=== PATIENT | female | born 1980 | race Two or more races ===

== ENCOUNTER 2021-06-10 10:23 | Emergency (ER) | payer OTHER ==
[~2021-06-10] VITALS: Ht 167.6 cm; Wt 72.6 kg
[2021-06-10] MEDS ORDERED: ACID REDUCER20 MG PO (10:50)
[2021-06-10] MEDS ORDERED: CEPHALEXIN500 M1 PO (10:51)
[2021-06-10] MEDS ORDERED: PYRIDIUM DS200 MG PO (16:12)
[2021-06-10] MEDS ORDERED: HEMATRON AF PO (16:12)
== END 2021-06-10 16:44 ==
LOC: ER 10:23
DX: N39.0 Urinary tract infection, site not specified (principal)

== ENCOUNTER 2021-06-15 10:18 | Emergency (ER) | payer OTHER ==
[~2021-06-15] VITALS: Ht 167.6 cm; Wt 72.6 kg
[~2021-06-15 10:18] MED LIST: ACID REDUCER20 MG PO; CEPHALEXIN500 M1 PO; HEMATRON AF PO; PYRIDIUM DS200 MG PO
== END 2021-06-15 15:27 | disposition home or self-care (01) ==
LOC: ER 10:18
DX: N39.0 Urinary tract infection, site not specified (principal)

== ENCOUNTER 2021-07-12 07:13 | Emergency (ER) | payer OTHER ==
[~2021-07-12] VITALS: Ht 167.6 cm; Wt 68.0 kg
[2021-07-12] MEDS ORDERED: KETO10TA2 PO (10:44)
== END 2021-07-12 10:48 | disposition home or self-care (01) ==
LOC: ER 07:13
DX: R30.0 Dysuria (principal); M54.50 Low back pain, unspecified

== ENCOUNTER → 2021-08-03 | Emergency (ER) | payer OTHER ==
[~2021-08-03] VITALS: Ht 167.6 cm; Wt 68.0 kg
[~2021-08-03] MED LIST changes: +KETO10TA2 PO
== END | disposition home or self-care (01) ==
LOC: ER 07:57
DX: K29.00 Acute gastritis without bleeding (principal)

== ENCOUNTER 2021-08-19 09:18 | Emergency (ER) | payer OTHER ==
[~2021-08-19] VITALS: Ht 167.6 cm; Wt 68.0 kg
== END 2021-08-19 12:04 | disposition home or self-care (01) ==
LOC: ER 09:18
DX: J06.9 Acute upper respiratory infection, unspecified (principal)

== ENCOUNTER 2021-09-02 09:52 | Emergency (ER) | payer OTHER ==
[~2021-09-02] VITALS: Ht 167.6 cm; Wt 68.0 kg
== END 2021-09-02 16:04 | disposition home or self-care (01) ==
LOC: ER 09:52
DX: N93.9 Abnormal uterine and vaginal bleeding, unspecified (principal)

== ENCOUNTER 2021-09-05 06:36 | Emergency (ER) | payer OTHER ==
[~2021-09-05] VITALS: Ht 167.6 cm; Wt 68.0 kg
[2021-09-11] MEDS ORDERED: PEPCID AC20 MG (00:46)
[2021-09-11] MEDS ORDERED: CARAFATE1 GM PO (02:56)
[2021-09-11] MEDS ORDERED: PEPCID AC20 MG PO (02:56)
[2021-09-12] MEDS ORDERED: PANADOL (21:54)
== END 2021-09-05 09:07 | disposition home or self-care (01) ==
LOC: ER 06:36
DX: R10.2 Pelvic and perineal pain (principal); R30.0 Dysuria

== ENCOUNTER → 2021-09-12 | Emergency (ER) | payer OTHER ==
[~2021-09-12] VITALS: Ht 167.6 cm; Wt 67.6 kg
[~2021-09-12] MED LIST changes: +CARAFATE1 GM PO; +PANADOL; +PEPCID AC20 MG; +PEPCID AC20 MG PO
== END | disposition left against medical advice (07) ==
LOC: ER 20:11
DX: Z53.21 Procedure and treatment not carried out due to patient leaving prior to being seen by health care provider (principal)

== ENCOUNTER 2021-12-22 01:21 | Emergency (ER) | payer OTHER ==
[~2021-12-22] VITALS: Ht 167.6 cm; Wt 68.0 kg
== END 2021-12-22 11:06 | disposition home or self-care (01) ==
LOC: ER 01:21
DX: J32.9 Chronic sinusitis, unspecified (principal); G51.0 Bell's palsy; D64.9 Anemia, unspecified

== ENCOUNTER 2022-01-17 20:29 | Emergency (ER) | payer OTHER ==
[~2022-01-17] VITALS: Ht 167.6 cm; Wt 68.0 kg
[2022-01-17] MEDS ORDERED: AMOX1TAB5 PO (21:16)
== END 2022-01-17 21:48 | disposition home or self-care (01) ==
LOC: ER 20:29
DX: J32.1 Chronic frontal sinusitis (principal); Z88.8 Allergy status to other drugs, medicaments and biological substances

== ENCOUNTER 2022-02-12 20:58 | Emergency (ER) | payer OTHER ==
[~2022-02-12] VITALS: Ht 167.6 cm; Wt 68.0 kg
[~2022-02-12 20:58] MED LIST changes: +AMOX1TAB5 PO
[2022-02-13] MEDS ORDERED: ULTRACET PO (00:45)
== END 2022-02-13 01:02 | disposition home or self-care (01) ==
LOC: ER 20:58
DX: G43.909 Migraine, unspecified, not intractable, without status migrainosus (principal); Z20.822 Contact with and (suspected) exposure to COVID-19

== ENCOUNTER 2022-03-18 04:04 | Emergency (ER) | payer OTHER ==
[~2022-03-18] VITALS: Ht 167.6 cm; Wt 68.0 kg
[~2022-03-18 04:04] MED LIST changes: +ULTRACET PO
== END 2022-03-18 09:29 | disposition home or self-care (01) ==
LOC: ER 04:04
DX: K29.70 Gastritis, unspecified, without bleeding (principal); F41.9 Anxiety disorder, unspecified; Z20.822 Contact with and (suspected) exposure to COVID-19; Z88.8 Allergy status to other drugs, medicaments and biological substances

== ENCOUNTER 2022-04-02 02:17 | Emergency (ER) | payer OTHER ==
[~2022-04-02] VITALS: Ht 167.6 cm; Wt 68.0 kg
[2022-04-02] MEDS ORDERED: PEPCID AC20 MG PO (05:18)
[2022-04-02] MEDS ORDERED: ACETAMINOPHEN650 M2 PO (05:18)
== END 2022-04-02 05:56 | disposition home or self-care (01) ==
LOC: ER 02:17
DX: B34.8 Other viral infections of unspecified site (principal); R12 Heartburn; R53.1 Weakness; Z20.818 Contact with and (suspected) exposure to other bacterial communicable diseases

== ENCOUNTER → 2022-04-03 | Emergency (ER) | payer OTHER ==
[~2022-04-03] VITALS: Ht 152.4 cm; Wt 68.0 kg
[~2022-04-03] MED LIST changes: +ACETAMINOPHEN650 M2 PO
== END | disposition left against medical advice (07) ==
LOC: ER 03:25
DX: Z53.21 Procedure and treatment not carried out due to patient leaving prior to being seen by health care provider (principal)

== ENCOUNTER 2022-07-11 08:29 | Emergency (ER) | payer OTHER ==
[~2022-07-11] VITALS: Ht 167.6 cm; Wt 68.0 kg
[~2022-07-11 08:29] MED LIST changes: +ACETAMINOPHEN650 M2
[2022-07-11] MEDS ORDERED: PEPCID AC20 MG PO (15:19)
[2022-07-11] MEDS ORDERED: KETO10TA2 PO (15:19)
== END 2022-07-11 18:22 ==
LOC: ER 08:29
DX: R10.9 Unspecified abdominal pain (principal); N39.0 Urinary tract infection, site not specified; E16.2 Hypoglycemia, unspecified

== ENCOUNTER 2022-08-16 12:38 | Emergency (ER) | payer OTHER ==
[~2022-08-16] VITALS: Ht 167.6 cm; Wt 68.0 kg
[2022-08-16] MEDS ORDERED: AMOX-CLAV 875-1 EACH PO (15:09)
== END 2022-08-16 15:39 | disposition home or self-care (01) ==
LOC: ER 12:38
DX: J32.9 Chronic sinusitis, unspecified (principal)

== ENCOUNTER 2022-09-09 07:21 | Emergency (ER) | payer OTHER ==
[~2022-09-09] VITALS: Ht 167.6 cm; Wt 63.5 kg
[~2022-09-09 07:21] MED LIST changes: +AMOX-CLAV 875-1 EACH PO
== END 2022-09-09 14:05 | disposition home or self-care (01) ==
LOC: ER 07:21
DX: K52.9 Noninfective gastroenteritis and colitis, unspecified (principal); Z88.8 Allergy status to other drugs, medicaments and biological substances